=== PATIENT | male | born 1990 | race Caucasian/White ===

== ENCOUNTER → 2017-10-24 | Outpatient (REF) | payer BC ==
[2017-10-24 19:40] LABS: INR 0.94
[2017-10-24 19:52] LABS: PLATELET COUNT, AUTOMATED 288 K/uL (150-450)
== END ==
PROVIDERS: ATTEND Family Medicine
DX: R06.02 Shortness of breath (principal)
CPT/HCPCS: 82040; 82247; 82310; 82374; 82435; 82565; 82947; 84075; 84132; 84155; 84295; 84450; 84460; 84520; 85025; 85379; 85610

== ENCOUNTER → 2017-10-24 | Outpatient (CLI) | payer BC ==
[~2017-10-24] MED LIST: IOPAMIDOL 76% 75 ML INFUS BTL 75 ML ONE; NS 0.9% 25 ML BAG 50 ML ONE
--- NOTE | 2017-10-24 20:38 | RADIOLOGY IMAGING REPORT ---
FACILITY: [facility] PATIENT NAME: Amadeo Gandhi : 1990 MR: [id number] V: [id number] EXAM DATE: ORDERING PHYSICIAN: MADELINE ROJAS TECHNOLOGIST: Location: Patient: Amadeo Gandhi : 1990 Visit/Account:[id number] Date of Sevice: 10/24/2017 CT angiogram chest with contrast Indication: Short of breath. Comparison: None available. Technique: Axial CT images are obtained through the chest after administration of 75 mL Isovue 370 IV contrast. Reformatted coronal and sagittal images were reviewed as well as coronal MIP images. One of the following dose optimization techniques was utilized in the performance of this exam: auto mated exposure control; adjustment of the mA and/or kV according to the patient's size; or use of an iterative reconstruction technique. Specific details can be referenced in the facility's radiology C T exam operational policy. FINDINGS: No evidence of filling defect within the pulmonary vasculature to suggest pulmonary embolus. Heart is normal size without pericardial effusion. Aorta shows no aneurysm or dissection. Mediastinum and hilar regions show no abnormal density or enlarged lymph nodes. Lungs show mild dependent atelectasis. No consolidations, pleural effusion, pneumothorax, discrete no dule or focal interstitial opacity. Airways are clear. Bony structures show no acute fractures or aggressive bony lesions. Chest wall shows no enlarged axil nkechi lymph nodes or masses. Limited views of the upper abdomen are unremarkable. IMPRESSION: 1. No evidence of pulmonary embolus. 2. No acute cardiothoracic abnormality Report Dictated By: Manuel Wilson at 10/24/2017 8:27 PM Report E-Signed By: Manuel Wilson at 10/24/2017 8:34 PM WSN:[id number]
== END ==
LOC: CT 18:51
PROVIDERS: ATTEND Family Medicine
DX: R06.02 Shortness of breath (principal)
CPT/HCPCS: 71275; Q9967